=== PATIENT | male | born 1945 | race Two or more races ===

== ENCOUNTER → 2018-09-08 | Outpatient (CLI) | payer OTHER, MEDICARE | LOC: FIMAGING 07:15 | PROVIDERS: ATTEND Family Medicine | DX: Z01.818 Encounter for other preprocedural examination (principal) ==

== ENCOUNTER → 2018-09-14 | Outpatient (CLI) | payer OTHER, MEDICARE | LOC: FIMAGING 08:36 | PROVIDERS: ATTEND Family Medicine | DX: R93.89 Abnormal findings on diagnostic imaging of other specified body structures (principal); K46.9 Unspecified abdominal hernia without obstruction or gangrene; M25.78 Osteophyte, vertebrae ==